=== PATIENT | male | born 1955 | race Caucasian/White ===

== ENCOUNTER → 2017-06-22 | Outpatient (CLI) | payer OTHER ==
[~2017-06-22] MED LIST: NS 100 ML IV 100 ML IV ONE
--- NOTE | 2017-06-22 15:26 | CT ---
Bilateral lower extremity CT angiogram without and with contrast. Indication: Bilateral lower extremity and foot pain at night. History of remote lumbar spine trauma. Comparison: None Technique: CT images of the lower abdomen, pelvis, and bilateral lower extremities were obtained with out and with IV contrast, per protocol. MIP images provided. Automatic exposure control was utilized. Angiographic findings: There is moderate to advanced diffuse aortic atherosclerosis, without aneurysm al dilatation or significant narrowing. The SMA, 2 right-sided renal arteries, single left renal malini ry, and YOVANI are grossly patent. There are scattered calcified and noncalcified plaques throughout the iliac arteries, without flow limiting narrowing or aneurysmal dilatation. Right lower extremity: Common femoral artery demonstrates moderate atherosclerosis, without significa nt narrowing. The deep femoral artery is patent. There are scattered plaques throughout the SFA with mild to moderate multifocal stenoses, especially distally. There are moderate multifocal popliteal st enoses. There is severe focal narrowing of the tibioperoneal trunk just distal to the anterior tibial artery takeoff (greater than 90%, image 276, series 13). The anterior tibial, peroneal, and posterio r tibial arteries are grossly patent to the foot. Left lower extremity: Moderate atherosclerosis of the common femoral artery with less than 50% lumina l narrowing. The deep femoral artery is grossly patent. There are mild multifocal stenoses of the SFA , worse distally. There is severe focal narrowing (approximately 80%) of the proximal popliteal arter y, with an additional area of focal high-grade stenosis distally in the popliteal artery (approximate ly 80%). There is otherwise mild multifocal narrowing throughout the remaining portions of the poplit eal artery. There is essentially complete occlusion of the tibioperoneal trunk just after the anterio r tibial artery takeoff. There is eventual reconstitution at its bifurcation with grossly patent thre e-vessel runoff to the foot. Non angiographic findings: Bone windows demonstrates marked lumbar spondylosis, worst at L4-5 and L5- S1. There is moderate to advanced tricompartmental degenerative arthrosis of the knees bilaterally, w orst in the medial compartments. The visualized portions of the liver, gallbladder, spleen, duodenum, pancreas, kidneys, and lower GI tract are unremarkable. Urinary bladder, prostate, and rectum are un remarkable. No free fluid or adenopathy identified. Impression: 1. Marked atherosclerotic disease, most severe in the lower legs. There are 2 focal high-grade stenos es of the left popliteal artery. There are high-grade stenoses of the tibioperoneal trunks bilateral ly, worse on the left, but with distal reconstitution, with three-vessel runoff bilaterally. 2. Additional less severe multifocal stenoses as above. 3. Non angiographic findings as above. Reported By:
== END | disposition home or self-care (01) | DRG 301 ==
LOC: RAD 08:59
PROVIDERS: ATTEND Internal Medicine
DX: I70.213 Atherosclerosis of native arteries of extremities with intermittent claudication, bilateral legs (principal); I87.2 Venous insufficiency (chronic) (peripheral)
CPT/HCPCS: 73706; A4222